=== PATIENT | female | born 1950 | race Caucasian/White ===

== ENCOUNTER → 2017-06-28 11:53 | Outpatient (CLI) | payer MEDICARE, BC ==
[2014-11-30 08:38] VITALS: BMI 42.0
[~2017-06-28 11:53] MED LIST: ANORO ELLIPTA1 EACH INH; BAYER CHEWABLE81 MG PO; BIOTIN5 MG PO; FUROSEMIDE20 MG PO; HYZAAR 50-12.51 TAB PO; PROTONIX40 MG PO
== END | disposition home or self-care (01) ==
LOC: D.MRI 11:53
DX: M25.511 Pain in right shoulder (principal)

== ENCOUNTER 2017-08-18 10:25 | Day surgery (SDC) | payer MEDICARE, BC ==
[~2017-08-18] VITALS: Ht 167.6 cm; Wt 129.7 kg
--- NOTE | ~2017-08-18 | OP ---
PATIENT NAME: JOÃO CUTLER MEDICAL RECORD: [id number] :46 LOCATION:D.OPS ADMISSION DATE: SURGEON: HEATHER MAO MD DATE OF OPERATION: 08/18/2017 PROCEDURE: Colonoscopy with biopsy. [employer]ANGEMENT COUNSELOR: Heather Mao MD SCOPE: Olympus video colonoscope. MEDICATIONS: Per TIVA. The patient received 200 mg of propofol for this procedure, O2 OF 4 liters. INDICATION FOR THE PROCEDURE: Screening test. FINDINGS: Informed consent was given. The patient was made comfortable with the above medications. After reaching an adequate level of sedation by slow IV push, the patient was placed on her left side. The rectal exam revealed good sphincter tone, no fissures or fistulas were appreciated. No external skin tags were seen. The colonoscope was advanced to the cecum where the ileocecal valve and appendiceal orifice were identified. On withdrawal of the scope, mucosa was carefully inspected. The patient had moderate left-sided diverticulosis without diverticulitis. She also had the suggestion of developing melanosis coli. A biopsy was obtained in the rectal vault. Finally within the rectal vault, some mild inflammation was appreciated and biopsies were taken. On retroflexion and final withdrawal of the scope, some very mild internal and external hemorrhoids were appreciated. The scope was then withdrawn. IMPRESSION: 1. Cecum identified and normal. 2. [id number] left-sided diverticulosis without diverticulitis. 3. Possible developing melanosis coli. 4. Very minimal proctitis, biopsied. 5. Internal hemorrhoids. 6. External hemorrhoids. PLAN: 1. No aspirin, no anti-inflammatory drugs times 14 days. 2. High fiber diet. 3. Return to clinic on a p.r.n. basis. TRANSINT:[id number] Voice Confirmation ID: [id number] DOCUMENT ID: [id number] CC: Dr. Beto Oquendo, [phone] HEATHER MAO MD at [id number] CC: DR BETO OQUENDO and AL DE OLIVEIRA [phone] DICTATION DATE: 08/18/17 1350 PETROGRAPHER: 08/18/17 8223 [facility] 08/18/17 [place] [id number]
[~2017-08-18 10:25] MED LIST changes: -ANORO ELLIPTA1 EACH INH; -FUROSEMIDE20 MG PO; -HYZAAR 50-12.51 TAB PO
[2017-08-18] MEDS ORDERED: HYZAAR 50-12.51 TAB PO (11:05)
[2017-08-18] MEDS ORDERED: FUROSEMIDE20 MG PO (11:06)
[2017-08-18] MEDS ORDERED: ANORO ELLIPTA1 EACH INH (11:06)
[2017-08-18 11:14] VITALS: BP 130/72; Ht 167.6 cm; Wt 129.7 kg
[2017-08-18 11:45] LABS: HEMATOCRIT 40.4 % (36.0-48.0); HEMOGLOBIN 13.3 g/dL (12-16); MCH 31.2 pg (26.0-34.0); MCHC 32.9 g/dL (31.0-37.0); MCV 94.8 fL (80.0-100.0); MEAN PLATELET VOLUME 9.8 fL (7.4-10.4); RBC 4.26 10x6/uL (4.00-5.40); RDW 13.9 % (11.5-14.5); WBC 5.2 10x3/uL (4.8-10.8)
== END 2017-08-18 14:45 | disposition home or self-care (01) ==
LOC: D.OPS 10:25
PROVIDERS: Anesthesiology
DX: Z12.11 Encounter for screening for malignant neoplasm of colon (principal); K57.30 Diverticulosis of large intestine without perforation or abscess without bleeding; K62.89 Other specified diseases of anus and rectum; K64.8 Other hemorrhoids; K64.4 Residual hemorrhoidal skin tags; Z01.812 Encounter for preprocedural laboratory examination